=== PATIENT | female | born 1955 | race Caucasian/White ===

== ENCOUNTER 2023-02-03 06:35 | Day surgery (SDC) | payer OTHER ==
[2023-02-03] MEDS ORDERED: Ringers Lactate 1,000 ML IV ONE (07:26)
[2023-02-03] MEDS ORDERED: propofoL 200 MG/20 ML VIAL IV ONE ×3 (08:34→09:01)
[2023-02-03] MEDS ORDERED: LIDOCAINE 1% MPF 30 ML VIAL ONE (08:34)
[2023-02-03 10:04] VITALS: BP 125/68; TEMP 97.1; O2SAT 100
== END 2023-02-03 10:18 | disposition home or self-care (01) ==
LOC: PRE 06:35 → OR 10:18
PROVIDERS: ATTEND Surgery
PROC: 0DBE8ZX Excision of Large Intestine, Via Natural or Artificial Opening Endoscopic, Diagnostic (ICD-10-PCS; principal; 2023-02-03 08:45)
DX: R19.4 Change in bowel habit (principal); R19.7 Diarrhea, unspecified; K52.3 Indeterminate colitis; R15.9 Full incontinence of feces; K64.8 Other hemorrhoids; K64.4 Residual hemorrhoidal skin tags; K63.5 Polyp of colon; Z98.890 Other specified postprocedural states; K62.89 Other specified diseases of anus and rectum
CPT/HCPCS: 88305; 45384; J2704 ×3; J2001; J7120